=== PATIENT | female | born 2000 | race Caucasian/White ===

== ENCOUNTER 2022-06-28 11:57 | Emergency (ER) | payer MEDICAID ==
[~2022-06-28] VITALS: Ht 167 cm; Wt 79.0 kg
[2022-06-28] MEDS ORDERED: ONDANSETRON 4 MG/2 ML (SDV) Z0FRAN IVP ONE (12:30)
[2022-06-28] MEDS ORDERED: LACTATED RINGERS 1,000 ML IV SCH ×2 (12:30→13:15)
--- NOTE | 2022-06-28 12:30 | ED GU-Female ---
General Chief Complaint: OB < 20 WEEKS Stated Complaint: VOMITING 12 WKS PREG Nursing Triage Note: ARRIVED VIA AMB TO ROOM 07 WITH COMPLAINTS OF VOMITING FOR SEVERAL DAYS. PT IS 12 WEEKS GESTATION. HAS FIRST APPT WITH [facility] ON June. Source: patient Exam Limitations: no limitations History of Present Illness Date Seen by Provider: June 28, 2022 Time Seen by Provider: 12:15 Initial Comments Patient is a 22-year-old female who presents to the emergency department with a chief complaint of severe nausea, vomiting, loss of appetite. She states that she believes she is about 12 weeks . She thinks her last menstrual cycle was approximately April 06. She has not sought care. She would be a G1, P0. She denies fevers, chills, runny nose sore throat. No shortness of breath or cough. No abdominal pain, cramping, vaginal bleeding or vaginal discharge. She states she has a little discomfort with urination. She is having some diarrhea. No headache, vision changes or swelling in her legs. She does not have a primary care doctor. She does admit to vaping THC wax, she drinks 1-2 alcoholic beverages a night. She states she has not had any alcohol in a couple of days. [facility] on July 10 and states that she is considering adoption. Timing/Duration: week, getting worse Severity/Quality: moderate Associated Symptoms: nausea/vomiting, other (decreased appetite) Allergies and Home Medications Allergies Coded Allergies: No Known Drug Allergies (Unverified , 06/28/22) Patient Home Medication List Home Medication List Reviewed: Yes Ondansetron (Ondansetron Odt) 4 Mg Tab.rapdis, 4 MG SL Q6H PRN for NAUSEA/VOMITING Prescribed by: WASHINGTON CHAMORRO on 06/28/22 1401 Review of Systems Review of Systems Constitutional: see HPI EENTM: no symptoms reported Respiratory: no symptoms reported Cardiovascular: no symptoms reported Gastrointestinal: loss of appetite, nausea Genitourinary: burning : Yes LMP: Apr 06, 2022 Skin: no symptoms reported Psychiatric/Neurological: Other (dizzy with standing) Past Lqmmzig-Mokvqr-Iyzyzp Hx Patient Social History Tobacco Use?: Yes Use of E-Cig and/or Vaping dev: Yes E-Cig or Vaping type used: Nicotine Substance use?: Yes Substance type: Marijuana Additional substance use comme: DAB PEN Alcohol Use?: Yes Alcohol type: Hard Liquor Alcohol Frequency: Daily Past Medical History Surgery/Hospitalization HX: Thyroglossal duct cyst removal Surgeries: Yes : Yes Last Menstrual Period: Apr 06, 2022 Hx : 1 Hx Para: 0 Hx Total # of Abortions (Sp): 0 Reproductive Disorders: No Physical Exam Vital Signs Vital Signs - First Documented 06/28/22 12:04 Temp 35.6 Pulse 78 Resp 16 B/P (MAP) 137/83 (101) Pulse Ox 99 O2 Delivery Room Air Capillary Refill : Less Than 3 Seconds Height, Weight, BMI Height: '" Weight: lbs. oz. kg; 28.00 BMI Method: General Appearance: WD/WN, no apparent distress HEENT: PERRL/EOMI Neck: supple Cardiovascular: regular rate, rhythm Respiratory: lungs clear, normal breath sounds, no respiratory distress, no accessory muscle use Gastrointestinal: normal bowel sounds, non tender, soft Extremities: normal range of motion, normal inspection Neurologic/Psychiatric: alert, normal mood/affect, oriented x 3 Skin: normal color, warm/dry Progress/Results/Core Measures Suspected Sepsis SIRS Temperature: Pulse: 78 Respiratory Rate: 16 Laboratory Tests 06/28/22 12:40: White Blood Count 13.2H Blood Pressure 137 /83 Mean: 101 Laboratory Tests 06/28/22 12:40: Creatinine 0.71, Platelet Count 224, Total Bilirubin 1.8H Results/Orders Lab Results Laboratory Tests Test 06/28/22 12:30 06/28/22 12:40 Range/Units Urine Color YELLOW Urine Clarity CLEAR Urine pH 6.0 5-9 Urine Specific [place] >=1.030 1.016-1.022 Urine Protein 2+ H NEGATIVE Urine Glucose (UA) NEGATIVE NEGATIVE Urine Ketones 3+ H NEGATIVE Urine Nitrite NEGATIVE NEGATIVE Urine Bilirubin 1+ H NEGATIVE Urine Urobilinogen 1.0 < = 1.0 MG/DL Urine Leukocyte Esterase TRACE H NEGATIVE Urine RBC (Auto) TRACE-I H NEGATIVE Urine RBC RARE /HPF Urine WBC RARE /HPF Urine Squamous Epithelial Cells 10-25 H /HPF Urine Crystals NONE /LPF Urine Bacteria MODERATE H /HPF Urine Casts NONE /LPF Urine Mucus MODERATE H /LPF Urine Culture Indicated YES White Blood Count 13.2 H 4.3-11.0 10^3/uL Red Blood Count 5.32 H 3.80-5.11 10^6/uL Hemoglobin 16.9 H 11.5-16.0 g/dL Hematocrit 47 35-52 % Mean Corpuscular Volume 88 80-99 fL Mean Corpuscular Hemoglobin 32 25-34 pg Mean Corpuscular Hemoglobin Concent 36 32-36 g/dL Red Cell Distribution Width 10.9 10.0-14.5 % Platelet Count 224 130-400 10^3/uL Mean Platelet Volume 11.2 9.0-12.2 fL Immature Granulocyte % (Auto) 0 % Neutrophils (%) (Auto) 92 H 42-75 % Lymphocytes (%) (Auto) 6 L 12-44 % Monocytes (%) (Auto) 2 0-12 % Eosinophils (%) (Auto) 0 0-10 % Basophils (%) (Auto) 0 0-10 % Neutrophils # (Auto) 12.1 H 1.8-7.8 10^3/uL Lymphocytes # (Auto) 0.7 L 1.0-4.0 10^3/uL Monocytes # (Auto) 0.3 0.0-1.0 10^3/uL Eosinophils # (Auto) 0.0 0.0-0.3 10^3/uL Basophils # (Auto) 0.0 0.0-0.1 10^3/uL Immature Granulocyte # (Auto) 0.0 0.0-0.1 10^3/uL Neutrophils % (Manual) 88 % Lymphocytes % (Manual) 9 % Monocytes % (Manual) 1 % Band Neutrophils 2 % Blood Morphology Comment NORMAL Sodium Level 137 135-145 MMOL/L Potassium Level 3.1 L 3.6-5.0 MMOL/L Chloride Level 100 98-107 MMOL/L Carbon Dioxide Level 21 21-32 MMOL/L Anion Gap 16 H 5-14 MMOL/L Blood Urea Nitrogen 6 L 7-18 MG/DL Creatinine 0.71 0.60-1.30 MG/DL Estimat Glomerular Filtration Rate 123 BUN/Creatinine Ratio 8 Glucose Level 110 H 70-105 MG/DL Calcium Level 10.3 H 8.5-10.1 MG/DL Corrected Calcium 8.5-10.1 MG/DL Total Bilirubin 1.8 H 0.1-1.0 MG/DL Aspartate Amino Transf (AST/SGOT) 38 H 5-34 U/L Alanine Aminotransferase (ALT/SGPT) 38 0-55 U/L Alkaline Phosphatase 41 40-136 U/L Total Protein 7.9 6.4-8.2 GM/DL Albumin 4.7 H 3.2-4.5 GM/DL My Orders Orders - WASHINGTON CHAMORRO MD Ed Iv/Invasive Line Start (06/28/22 12:24) Cbc With Automated Diff (06/28/22 12:24) Comprehensive Metabolic Panel (06/28/22 12:24) Ua Culture If Indicated (06/28/22 12:24) Lactated Ringers (Lr 1000 Ml Iv Solution (06/28/22 12:30) Ondansetron Injection (Zofran Injectio (06/28/22 12:30) Manual Differential (06/28/22 12:40) Urine Culture (06/28/22 12:30) Lactated Ringers (Lr 1000 Ml Iv Solution (06/28/22 13:15) Promethazine Injection (Phenergan Injec (06/28/22 13:30) Medications Given in ED Current Medications Medications Dose Ordered Sig/Felipa Route Start Time Stop Time Status Last Admin Dose Admin Ondansetron HCl 4 mg ONCE ONCE IVP 06/28/22 12:30 06/28/22 12:31 DC 06/28/22 12:32 4 MG Promethazine HCl 25 mg ONCE ONCE IVP 06/28/22 13:30 06/28/22 13:31 DC 06/28/22 13:40 25 MG Vital Signs/I&O 06/28/22 12:04 Temp 35.6 Pulse 78 Resp 16 B/P (MAP) 137/83 (101) Pulse Ox 99 O2 Delivery Room Air Capillary Refill : Less Than 3 Seconds Blood Pressure Mean: 101 Progress Note : Time: 12:30 Progress Note POC bedside ultrasound shows adequate cardiac activity, heart motion/movement; measures about 13 weeks which would put approximate due date 01/05/23 Departure Impression Primary Impression: Nausea and vomiting in Additional Impressions: Dehydration 12 weeks gestation of Disposition: 01 HOME, SELF-CARE Condition: Improved Departure-Patient Inst. Decision time for Depature: 14:42 Referrals: [facility] [place] NO,LOCAL PHYSICIAN (PCP) Primary Care Physician Patient Instructions: Nausea and Vomiting of Add. Discharge Instructions: Please sip on fluids throughout the day to stay well-hydrated. Gatorade, propel ogden or plain water. Use the Zofran 1 every 6-8 hours as needed for nausea, taking no more than 3 tablets in a day. You can also use [id number] Unisom, which is normally used for sleep, but also works well for nausea and vomiting in . Follow packaging instructions. Take an [id number] vitamin daily. Generic is fine. Do not drink any more alcohol while . You should also stop vaping THC, for your health and the health of the baby. Keep your follow[facility]up appointment with [facility]. You can also follow-up with [facility] as they have resources for care, adoption and general women's health. Scripts Ondansetron (Ondansetron Odt) 4 Mg Tab.rapdis 4 MG SL Q6H PRN for NAUSEA/VOMITING, #20 TAB no more than 3 tablets in a day Prov: WASHINGTON CHAMORRO MD 06/28/22 WASHINGTON CHAMORRO MD June 28, 2022 12:30
[2022-06-28 12:38] LABS: CLARITY,URINE CLEAR; COLOR,URINE YELLOW; GLUCOSE, URINE (UA) NEGATIVE (NEGATIVE); KETONES,URINE 3+ (NEGATIVE); LEUKOCYTE ESTERASE ,URINE TRACE (NEGATIVE); NITRITE,URINE NEGATIVE (NEGATIVE); PROTEIN,URINE 2+ (NEGATIVE)
[2022-06-28 12:55] LABS: BASOPHILS % (AUTO) 0 % (0-10); EOSINOPHILS % (AUTO) 0 % (0-10); HEMATOCRIT 47 % (35-52); HEMOGLOBIN 16.9 g/dL (11.5-16.0); LYMPHOCYTES # (AUTO) 0.7 10^3/uL (1.0-4.0); LYMPHOCYTES % (AUTO) 6 % (12-44); MEAN CORPUSCULAR HEMOGLOBIN 32 pg (25-34); MEAN CORPUSCULAR HGB CONC 36 g/dL (32-36); MEAN CORPUSCULAR VOLUME 88 fL (80-99); MEAN PLATELET VOLUME 11.2 fL (9.0-12.2); MONOCYTES # (AUTO) 0.3 10^3/uL (0.0-1.0); MONOCYTES % (AUTO) 2 % (0-12); NEUTROPHILS # (AUTO) 12.1 10^3/uL (1.8-7.8); NEUTROPHILS % (AUTO) 92 % (42-75); PLATELET COUNT 224 10^3/uL (130-400); WHITE BLOOD COUNT 13.2 10^3/uL (4.3-11.0)
[2022-06-28 12:57] LABS: ALBUMIN 4.7 GM/DL (3.2-4.5); CHLORIDE 100 MMOL/L (98-107); POTASSIUM 3.1 MMOL/L (3.6-5.0); SODIUM 137 MMOL/L (135-145)
[2022-06-28 12:58] LABS: CALCIUM 10.3 MG/DL (8.5-10.1)
[2022-06-28 12:59] LABS: GLUCOSE 110 MG/DL (70-105); TOTAL PROTEIN 7.9 GM/DL (6.4-8.2)
[2022-06-28 12:59] LABS: BACTERIA,URINE MODERATE /HPF; BILIRUBIN,URINE 1+ (NEGATIVE); RBC,URINE RARE /HPF; WBC,URINE RARE /HPF
[2022-06-28 13:00] LABS: CARBON DIOXIDE 21 MMOL/L (21-32)
[2022-06-28 13:01] LABS: BILIRUBIN,TOTAL 1.8 MG/DL (0.1-1.0)
[2022-06-28 13:02] LABS: ALKALINE PHOSPHATASE 41 U/L (40-136)
[2022-06-28 13:03] LABS: CREATININE SERUM 0.71 MG/DL (0.60-1.30); GFR ESTIMATED 123
[2022-06-28 13:04] LABS: BUN/CREATININE RATIO 8
[2022-06-28 13:06] LABS: ALANINE AMINOTRANSFERASE 38 U/L (0-55)
[2022-06-28 13:21] LABS: BAND NEUTROPHILS 2 %; LYMPHOCYTES % (MANUAL) 9 %; MONOCYTES % (MANUAL) 1 %; NEUTROPHILS % (MANUAL) 88 %; RBC MORPH NORMAL
[2022-06-28] MEDS ORDERED: PROMETHAZINE INJ 25 MG/ML (PHENERGAN) AMP IVP ONE (13:30)
[2022-06-28] MEDS ORDERED: ONDA4TAB11 SL (14:01)
[2022-06-28 14:49] VITALS: BP 137/83
== END 2022-06-28 14:48 | disposition home or self-care (01) ==
LOC: ER 12:01
DX: O21.9 Vomiting of pregnancy, unspecified (principal); O99.611 Diseases of the digestive system complicating pregnancy, first trimester; O99.331 Smoking (tobacco) complicating pregnancy, first trimester; E86.0 Dehydration; F17.290 Nicotine dependence, other tobacco product, uncomplicated; Z3A.12 12 weeks gestation of pregnancy
CPT/HCPCS: 36415; 80053; 81000; 85007; 85027; 87088